=== PATIENT | female | born 1965 | race Caucasian/White ===

== ENCOUNTER 2022-02-19 12:35 | Emergency (ER) | payer OTHER ==
[~2022-02-19] VITALS: Ht 165.1 cm; Wt 65.0 kg
[2022-02-19] MEDS ORDERED: ACETAMINOPHEN 325MG TABLET PO ONE (14:00)
[2022-02-19 15:38] VITALS: BP 148/85
== END 2022-02-19 15:39 | disposition home or self-care (01) ==
LOC: ER 12:35
DX: S09.8XXA Other specified injuries of head, initial encounter (principal); S00.33XA Contusion of nose, initial encounter; I10 Essential (primary) hypertension; E11.9 Type 2 diabetes mellitus without complications; Y00.XXXA Assault by blunt object, initial encounter; Y93.89 Activity, other specified; Y92.524 Gas station as the place of occurrence of the external cause
CPT/HCPCS: 70486; 99284